=== PATIENT | female | born 1995 | race Caucasian/White ===

== ENCOUNTER 2018-04-20 10:51 | Inpatient (IN) | payer OTHER ==
[~2018-04-20] VITALS: Ht 149.9 cm; Wt 83.9 kg
[2018-04-20] MEDS ORDERED: PRENATAL TABLE1 EAC2 PO (11:16)
== END 2018-04-22 12:33 | disposition home or self-care (01) | DRG 775 ==
LOC: LDR 10:51 → OB/GYN 19:13
PROC: 0KQM0ZZ Repair Perineum Muscle, Open Approach (ICD-10-PCS; principal; 2018-04-20)
PROC: 10E0XZZ Delivery of Products of Conception, External Approach (ICD-10-PCS; 2018-04-20)
PROC: 4A1HXCZ Monitoring of Products of Conception, Cardiac Rate, External Approach (ICD-10-PCS; 2018-04-20)
DX: O70.1 Second degree perineal laceration during delivery (principal); Z37.0 Single live birth; Z3A.39 39 weeks gestation of pregnancy